=== PATIENT | female | born 1970 | race Caucasian/White ===

== ENCOUNTER 2023-11-06 20:02 | Emergency (ER) | payer MEDICAID, SELFPAY ==
--- NOTE | ~2023-11-06 | XR_ITS ---
EXAMINATION: XR HAND/WRIST, RIGHT CLINICAL INFORMATION: Injury COMPARISON: None TECHNIQUE: PA, lateral, scaphoid, and oblique views of the right hand and wrist. FINDINGS: Minimal osteoarthritis is noted at the index finger DIP joint with a small subchondral cyst in the and medial aspect of the distal phalangeal base. No acute osseous findings. No fracture. Alignment is anatomic. Joint spaces are otherwise maintained. No erosions or soft tissue calcifications. XR/XR hand wrist RT IMPRESSION: No acute fracture or malalignment. 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
[2023-11-06 20:43] VITALS: BP 144/79; PULSE 106; RESP 16; TEMP 36.6; O2SAT 97; BMI 26.2
--- NOTE | 2023-11-06 22:03 | ED_ITS ---
HPI - Extremity Problem General Chief complaint: Extremity Injury, Upper Stated complaint: fell 11/04 right wrist inj Time Seen by Provider: 11/06/23 21:54 Source: patient Mode of arrival: ambulatory Limitations: no limitations History of Present Illness HPI Narrative: 53 yo female with PMH of HTN, seizures here after fall outside injuring R wrist - she is R hand dominant at this time worsenend pain since fall on Tuesday when she developed a bruise. She notes she always bruises not on thinners. No other injuries has not really been resting it. MD Complaint: joint swelling and joint pain Onset (ago): day(s) (Tuesday ) Pain Consistency: intermittent Location: right and upper extremity Quality: aching Radiation: none Relieving factors: rest Exacerbating factors: range of motion and palpation Associated symptoms: denies other symptoms Context: other (fall ) Related Data Allergies Allergy/AdvReac Type Severity Reaction Status Date / Time No Known Allergies Allergy Verified 11/06/23 20:46 Review of Systems Review of Systems: Constitutional : No Fever, No Chills Cardiovascular : No Chest Pain, No SOB Respiratory : No Cough, No Dyspnea Gastrointestinal : No Nausea, No Vomiting, No Diarrhea, No abdominal Pain Genitourinary : No Dysuria, No Hematuria Musculoskeletal : positive joint pain, No Myalgias, pos Joint Swelling Skin : No Skin lacerations, No rash Neuro : No Weakness, No Numbness, No Loss of Consciousness, No Dizziness, No Headache Psych : No Anxiety/Panic, No Depression All other systems reviewed and are negative [facility] Past Medical History Source: old records reviewed Medical History HTN (hypertension) Seizures Social History Social History (Updated 11/06/23 @ 22:08 by Shlioh Akbar DO) Patient Tobacco Use Status: Tobacco use Unknown Physical Exam Vital Signs: Vital Signs: Last Vital Signs Temp 97.8 F 11/06/23 20:43 Pulse 106 H 11/06/23 20:43 Resp 16 11/06/23 20:43 BP 144/79 H 11/06/23 20:43 Pulse Ox 97 11/06/23 20:43 O2 Del Method Room Air 11/06/23 20:43 BMI result Body Mass Index 26.2 Appearance: Alert. Oriented X3. No acute distress. Eyes: Pupils equal, round and reactive to light. ENT: Pharynx normal. Neck: Normal inspection. Neck supple. CVS: Pulses normal. Respiratory: No respiratory distress. Abdomen: Soft and nontender. Skin: Skin warm and dry. Normal skin color. Normal skin turgor. Extremities: R wrist contusion on volar surface - from anterior surface to R thumb - distal NV intact no snuffbox ttp - BCR in all digits. no sig swelling very mild Neuro: Oriented X 3. No motor deficit. No sensory deficit. Medical Decision Making Medical Decision Making MDM Narrative: 53 yo female with PMH of HTN, seizures - here with c/o R hand injury s/p fall now with pain to wrist - she is NV intact does have bruising will obtain xray to rule out fracture to hand and wrist. if negative place in splint. Differential Diagnosis Differential Diagnoses: The differential diagnosis associated with the presentation includes sprain strain fracture Independent Interpretation I performed an independent interpretation of an: Plain X-Ray (no fracture) Radiology Impression Discussion of test interpretation with radiology: I have reviewed the radiologist's reading. Procedures Orthopedic Splinting/Casting Injury #1: Side: right Upper Extremity Injury Location: wrist Upper Extremity Immobilizer: wrist splint Discharge Plan Discharge Clinical Impression: Sprain and strain of wrist Finger sprain Qualifiers: Encounter type: initial encounter Finger: thumb Sprain of finger site: unspecified site Laterality: right Qualified Code(s): S63.601A - Unspecified sprain of right thumb, initial encounter Patient Disposition: Home, Self-Care Instructions: Finger Sprain (ED), Wrist Sprain (ED), Hematoma (ED) Additional Instructions: no fracture seen on hand or wrist xray. likely pain from swelling and brusing. return for worsening pain, swelling, numbness, tingling. keep elevated - wear splint and wrap for 1 week please follow up with our orthopedic team if not improved in 1 week - call to make appointment Referrals: Yaya Lomeli PA-C [[facility]] - 1 week (call to schedule appointment)
== END 2023-11-06 22:22 | disposition home or self-care (01) ==
PROVIDERS: Emergency Provider Emergency Medicine; PCP Internal Medicine
DX: S63.501A Unspecified sprain of right wrist, initial encounter (principal); S66.911A Strain of unspecified muscle, fascia and tendon at wrist and hand level, right hand, initial encounter; S63.601A Unspecified sprain of right thumb, initial encounter; W22.8XXA Striking against or struck by other objects, initial encounter; Y93.9 Activity, unspecified; Y92.017 Garden or yard in single-family (private) house as the place of occurrence of the external cause; Y99.9 Unspecified external cause status
CPT/HCPCS: 73110; 73130; 99283

== ENCOUNTER 2023-11-25 07:49 | Outpatient (AMB) | payer MEDICAID, SELFPAY ==
--- NOTE | 2023-11-25 08:06 | A.OFFVIS_ITS ---
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 Patient reports that she slipped on rake, hitting the ground landing on her whole weight on her right arm. She presented to [facility] ED 2 days later due to her pain and bruising. Current pain level is 8 out 10. Finds relief with ibuprofen, Tylenol and icing. 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 She was seen at ED 2 days later due to her pain and bruising in her hand where she was advised taking ibuprofen, Tylenol and icing which provided her relief. She currently states she has pain in her right hand and rates the pain as 8 on the scale of 0-10. PFSH Medical History (Updated 11/25/23 @ 08:21 by Yaya Lomeli PA-C) HTN (hypertension) Seizures Surgical History (Updated 11/25/23 @ 08:11 by JASS Shah) Hx of brain surgery Social History (Updated 11/25/23 @ 08:11 by JASS Shah) Patient Tobacco Use Status: Former Tobacco user Current occupational status: unemployed Current occupation: right hand dominant Review of Systems Const All systems reviewed & are unremarkable except as noted in HPI and below Physical Exam Const General: cooperative, healthy appearing, comfortable, no acute distress, well developed and alert Orientation/consciousness: patient oriented x3 HEENT Head: Yes normal to inspection, Yes normocephalic and Yes atraumatic Eyes General: appearance normal, both eyes and all related structures Resp Effort & Inspection: normal respiratory effort and able to speak in complete sentences Cardio Rate: regular rate Peripheral pulses: Peripheral pulses 2+ throughout GI Palpation (GI): Soft to palpation Skin Lesions: no lesions Rashes: no rashes Neuro General: patient oriented x3 Extrem Other: Right wrist: Normal to inspection. She has mild tenderness along the basal joint of the thumb. No swelling or bruising. No pain with CMC grind. Mild tenderness with stress testing of IP joint of the thumb. She has no significant laxity when compared to the contralateral side. She can make a full fist and extend all the digits. NVI. Results Reviewed Results Reviewed: xrays of the right wrist obtained in the ED on 11/06 are negative for fracture dislocations Assessment & Plan Assessment & Plan (1) Sprain of right thumb: Code(s): S63.601A - Unspecified sprain of right thumb, initial encounter Qualifiers: Encounter type: initial encounter Sprain of finger site: interphalangeal joint Qualified Code(s): S63.621A - Sprain of interphalangeal joint of right thumb, initial encounter (2) Right wrist sprain: Code(s): S63.501A - Unspecified sprain of right wrist, initial encounter Qualifiers: Encounter type: initial encounter Qualified Code(s): S63.501A - Unspecified sprain of right wrist, initial encounter Plan She was transitioned to a thumb spica Velcro wrist splint which she will wear for the next 2 weeks for resting and then begin a course of occupational therapy to work on gentle ROM and organic preparation analyst strength. She will continue taking anti- inflammatories as needed and follow-up if symptoms persist or worsen, otherwise as needed. Orders: Orders OT Evaluation and Treatment Today S63.501A - Unspecified sprain of right wrist, initial encounter, S63.601A - Unspecified sprain of right thumb, initial encounter Patient Instructions: Scribed for Yaya Lomeli PA-C, by Germain Restrepo medical physics teacher, on 11/25/2023 at 8:00 AM EST. I, Yaya Lomeli PA-C, have personally reviewed and agree with the information entered by the scribe. Coding Level of Care Code New Pt Level 3 (51813) Diagnoses Sprain of interphalangeal joint of right thumb, initial encounter S63.621A Encounter type: initial encounter Sprain of finger site: interphalangeal joint Sprain of right wrist, initial encounter S63.501A Encounter type: initial encounter
== END 2023-11-25 08:33 | disposition home or self-care (01) ==
PROVIDERS: PCP Internal Medicine; Visit Provider Physician Assistant
DX: S63.621A Sprain of interphalangeal joint of right thumb, initial encounter (principal); S63.501A Unspecified sprain of right wrist, initial encounter
CPT/HCPCS: 99203

== ENCOUNTER → 2023-11-25 07:49 | Outpatient (BNVA) | payer MEDICAID, SELFPAY | PROVIDERS: PCP Internal Medicine; Visit Provider Physician Assistant | DX: S63.621A Sprain of interphalangeal joint of right thumb, initial encounter (principal); S63.501A Unspecified sprain of right wrist, initial encounter | CPT/HCPCS: 99212 ==

== ENCOUNTER 2023-12-21 09:30 | Outpatient (RCR) | payer MEDICAID, SELFPAY ==
--- NOTE | 2023-12-02 09:32 | MHC.OT.EP ---
[address] [phone] Occupational Therapy Plan of Care Patient Name: Olga Weaver Date of Evaluation: 12/02/23 Diagnosis: Right wrist/thumb sprain Pain Location: Pain free at rest, up top 8/10 w/ use or palpation Right wrist, base of thumb, tender to palpate Tender OA nodule on lateral distal phalanx right thumb Pain Score: 8 Pain Scale Used: Numeric (0 - 10) Aggravating Factors: Palpation of thumb IP and base on thumb, volar wrist Increased pain w/ general use Alleviating Factors: Taking Tylenol and Ibuprophen, ice pack daily, wearing thumb spica orthosis Assessment: 53 yo female presents s/p fall in her yard about one month ago. She was seen in ED and then [facility] for right thumb and wrist pain, x-ray (-) for acute fractiure but does show OA in right thumb distal phalanx. She has been wearing thumb spica and using ice and Tylenol/Ibuprophen alternating for comfort. On assessment, she has tenderness to palpate nodule on distal thumb and pain at base of right thumb. Her range if slightly decreased from baseline, but overall functional. 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 She will benefit from cont'd OT services for progression of range, strength and functional use w/ mindfulness of joint protection and pain mangement. Frequency and Duration: The patient will be seen 2x/wk for 3 weeks Short Term Goals: Ind w/ HEP Good follow through w/ thumb joint protection techniques Good follow through w/ use of heat and ice appropriately Pressure Controller Goals: Wean from thumb spica orthosis QuickDASH <45 pts Gross grasp >30lb Pt to report pain <2/10 w/ daily activities (laundry, sweeping) Full thumb opp to base of small finger Treatment Plan: Therapeutic Exercise Therapeutic Activity Home Exercise Program Splinting Patient Education Edema Control ADL Training Paraffin Fluidotherapy MHP Cold Packs Joint Mobilization Soft Tissue Mobilization Kinesiotaping Electronically Signed By: Kirstie Bowers OTR/L CHT Please Sign and return to therapist. Thank you once again for your referral.
--- NOTE | 2023-12-21 14:16 | MHC.OT.DC ---
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 Pt reports she is confident with her HEP with thumb stablization exercises and with continuing joint protection techniques. 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
== END 2023-12-21 14:17 | disposition home or self-care (01) ==
LOC: HO.OT 09:30
PROVIDERS: PCP Internal Medicine; Visit Provider Physician Assistant
DX: S63.601A Unspecified sprain of right thumb, initial encounter (principal); S63.501A Unspecified sprain of right wrist, initial encounter
CPT/HCPCS: 29130; 97033; 97110; 97140; 97165; 97760

== ENCOUNTER 2024-01-11 10:56 | Outpatient (AMB) | payer MEDICAID, SELFPAY ==
--- NOTE | 2024-01-11 11:03 | A.OFFVIS_ITS ---
Intake Vital Signs 01/11/24 11:08 Height 5 ft Weight 134 lb BMI 26.2 Intake Visit Reasons: ov- Right wrist sprain and thumb pain Intake Note: Olga a 53 year old right hand dominant female presents today for a follow up of right wrist sprain and thumb pain. Patient reports continues to have pain and swelling however she has had improvement in swelling. She continues to do at home exercises. Allergies No Known Allergies Allergy (Verified 01/11/24 11:07) Medication List - Last Reconciled 01/11/24 by Yaya Lomeli PA-C azelastine 2 sprays intranasal BID PRN budesonide-formoterol 160-4.5 mcg/actuation (Symbicort) inhalation fluoxetine 40 mg PO DAILY gabapentin 100 mg PO BEDTIME hydrochlorothiazide 25 mg PO DAILY hydroxyzine pamoate 25 mg PO DAILY levetiracetam mg PO lisinopril 5 mg PO DAILY montelukast 10 mg PO DAILY omeprazole 40 mg PO QAM HPI ov- Right wrist sprain and thumb pain HPI Details 53-year-old right hand dominant female faustino galvez returns to the office today for a follow-up of right wrist and thumb pain. She reports she has improvement however she continues to have pain and swelling in her hand. She also c/o weakness in her hand with gripping objects. She has been working with occupational therapy and wearing her brace at night with mild relief. She finds relief with ibuprofen and Tylenol. [facility] Medical History (Updated 11/25/23 @ 08:21 by Yaya Lomeli PA-C) HTN (hypertension) Seizures Surgical History Hx of brain surgery Social History Patient Tobacco Use Status: Former Tobacco user Current occupational status: unemployed Current occupation: right hand dominant Review of Systems Const All systems reviewed & are unremarkable except as noted in HPI and below Physical Exam Vital Signs: BMI result Body Mass Index 26.2 Const General: cooperative, healthy appearing, comfortable, no acute distress, well developed and alert Orientation/consciousness: patient oriented x3 HEENT Head: Yes normal to inspection, Yes normocephalic and Yes atraumatic Eyes General: appearance normal, both eyes and all related structures Resp Effort & Inspection: normal respiratory effort and able to speak in complete sentences Cardio Rate: regular rate Peripheral pulses: Peripheral pulses 2+ throughout GI Palpation (GI): Soft to palpation Skin Lesions: no lesions Rashes: no rashes Neuro General: patient oriented x3 Extrem Other: Right wrist: Normal to inspection. She has mild tenderness along the basal joint of the thumb. No swelling or bruising. No pain with CMC grind. Mild tenderness with stress testing of IP joint of the thumb. She has no significant laxity when compared to the contralateral side. She can make a full fist and extend all the digits. Positive Rudolph's. NVI. Assessment & Plan Assessment & Plan (1) Sprain of right thumb: Code(s): S63.601A - Unspecified sprain of right thumb, initial encounter Qualifiers: Encounter type: initial encounter Sprain of finger site: interphalangeal joint Qualified Code(s): S63.621A - Sprain of interphalangeal joint of right thumb, initial encounter (2) Right wrist sprain: Code(s): S63.501A - Unspecified sprain of right wrist, initial encounter Qualifiers: Encounter type: initial encounter Qualified Code(s): S63.501A - Unspecified sprain of right wrist, initial encounter Plan We discussed options today which include steroid injection. They did consent to move forward with the right wrist injection, which was tolerated well. I recommended rest, ice and elevation and OTC anti-inflammatories PRN for discomfort. If symptoms persist or worsens over the next 6-8 weeks, patient will contact the office, otherwise follow-up as needed. She was also fit for a new Velcro thumb spica wrist splint which she will wear at night. I encouraged no heavy lifting or strenuous activities for the next 6 weeks. An EMG/nerve conduction study has been ordered to further evaluate the etiology of her numbness on the right hand. Orders: Orders NE electromyogram (EMG) Today R20.0 - Anesthesia of skin, R20.2 - Paresthesia of skin NE nerve conduction velocity Today R20.0 - Anesthesia of skin, R20.2 - Paresthesia of skin Patient Instructions: Scribed for Yaya Lomeli PA-C, by Germain Restrepo neuropsychology medical consultant, on 01/11/2024 at 11:00 AM Yaya DAVILA PA-C, have personally reviewed and agree with the information entered by the scribe. Coding Level of Care Code Est Pt Level 3 (23005) Diagnoses Sprain of interphalangeal joint of right thumb, initial encounter S63.621A Encounter type: initial encounter Sprain of finger site: interphalangeal joint Sprain of right wrist, initial encounter S63.501A Encounter type: initial encounter
[2024-01-11 11:08] VITALS: BMI 26.2
== END 2024-01-11 11:49 | disposition home or self-care (01) ==
PROVIDERS: PCP Internal Medicine; Visit Provider Physician Assistant
DX: S63.621A Sprain of interphalangeal joint of right thumb, initial encounter (principal); S63.501A Unspecified sprain of right wrist, initial encounter
CPT/HCPCS: 99213

== ENCOUNTER → 2024-01-11 10:56 | Outpatient (BNVA) | payer MEDICAID, SELFPAY | PROVIDERS: PCP Internal Medicine; Visit Provider Physician Assistant | DX: S63.621A Sprain of interphalangeal joint of right thumb, initial encounter (principal); S63.501A Unspecified sprain of right wrist, initial encounter | CPT/HCPCS: 20605; 99212; J1100 ==

== ENCOUNTER 2024-02-24 08:15 | Outpatient (REF) | payer MEDICAID, SELFPAY ==
--- NOTE | 2024-02-24 08:18 | EMG_ITS ---
Chief complaint: Right wrist pain after a fall October 2023, finger numbness Reason for referral: Evaluate for Carpal Tunnel Syndrome Referred by: Yaya ECHEVERRIA Procedure done: Right upper extremity NCS/EMG Precautions and/or limitations: None The limb temperature was monitored continuously and remained between 32-36 degrees C during the performance of the NCS. Nerve Conduction Studies Anti Sensory Summary Table ?Stim Site NR Onset (ms) Norm Onset (ms) Peak (ms) Norm Peak (ms) O-P Amp (?V) Norm O-P Amp Site1 Site2 Delta-0 (ms) Dist (cm) Joe (m/s) Norm Joe (m/s) Right Median Anti Sensory (2nd Digit) Wrist ? 2.3 3.1 <3.6 45.3 >10 Wrist 2nd Digit 2.3 14.0 61 Right Ulnar Anti Sensory (5th Digit) Wrist ? 2.0 2.8 <3.7 25.6 >15.0 Wrist 5th Digit 2.0 14.0 70 Motor Summary Table ?Stim Site NR Onset (ms) Norm Onset (ms) O-P Amp (mV) Norm O-P Amp iAmp (mV) Amp (1st) (%) Site1 Site2 Delta-0 (ms) Dist (cm) Joe (m/s) Norm Joe (m/s) Right Median Motor (Abd Poll Brev) Wrist ? 3.0 <3.9 11.7 >4.5 13.6 100.0 Elbow Wrist 3.3 17.0 52 >45 Elbow ? 6.3 10.9 12.6 93.2 Right Ulnar Motor (Abd Dig Minimi) Wrist ? 2.2 <3.0 9.0 >5 11.3 100.0 B Elbow Wrist 2.7 15.0 56 >45 B Elbow ? 4.9 9.0 11.5 100.0 A Elbow B Elbow 1.0 10.0 100 >45 A Elbow ? 5.9 8.8 11.3 97.8 Comparison Summary Table ?Stim Site NR Peak (ms) Norm Peak (ms) P-T Amp (?V) Site1 Site2 Delta-P (ms) Norm Delta (ms) Right Median/Radial Dig I Comparison (Digit 1 - 10cm) Median ? 2.6 <2.9 97.2 Median Radial 0.5 Radial ? 2.1 <2.8 23.9 EMG ?Side Muscle Nerve Root Ins Act Fibs Psw Amp Dur Poly Recrt Int Pat Comment Right 1stDorInt Ulnar C8-T1 Nml Nml Nml Nml Nml 0 Nml Complete Right FlexCarRad Median C6-7 Nml Nml Nml Nml Nml 0 Nml Complete Right Biceps Musculocut C5-6 Nml Nml Nml Nml Nml 0 Nml Complete Right Triceps Radial C6-7-8 Nml Nml Nml Nml Nml 0 Nml Complete Right Deltoid Axillary C5-6 Nml Nml Nml Nml Nml 0 Nml Complete FINDINGS: 0.5 interlatency difference between right median and radial sensory nerves. Otherwise, all other motor and sensory nerves tested showed normal latencies, amplitudes and conduction velocities. Concentric needle EMG was performed in selected muscles of the right upper extremity. Study did not reveal signs of electric abnormalities as shown in the table below. IMPRESSION: 1. This is a minimally abnormal study. 2. There is electrodiagnostic evidence for right mild/borderline median neuropathy at the wrist. 3. There is no electrodiagnostic evidence for ulnar neuropathy, brachial plexopathy, or cervical radiculopathy. Thank you for your kind referral. Antoinette Riddle MD, DOTTIE Board Certified, [place] [employer] and [employer] (ABPMR) Board Certified, [place] Board of Electrodiagnostic [employer] (ABEM) [place] [id number] [facility]
== END 2024-02-24 08:16 | disposition home or self-care (01) ==
LOC: HO.NEURO 08:15
PROVIDERS: Visit Provider Physician Assistant
DX: R20.0 Anesthesia of skin (principal); R20.2 Paresthesia of skin
CPT/HCPCS: 95886; 95909

== ENCOUNTER → 2024-02-24 08:18 | Outpatient (BNV) | payer MEDICAID, SELFPAY | PROVIDERS: Visit Provider Physical Medicine & Rehabilitation | DX: G56.11 Other lesions of median nerve, right upper limb (principal); M25.531 Pain in right wrist | CPT/HCPCS: 95886; 95909 ==

== ENCOUNTER 2024-03-14 09:14 | Outpatient (AMB) | payer MEDICAID, SELFPAY ==
--- NOTE | 2024-03-14 09:28 | MHC.OFFVIS ---
Intake Vital Signs 03/14/24 09:29 Height 5 ft Weight 135 lb BMI 26.4 Intake Visit Reasons: ov- emg results review Intake Note: Olga 54 yr old right hand dominant female presents today for his EMG review. States she is ready to have surgery. Booking sheet has been filled out and all question have been answered. Allergies No Known Allergies Allergy (Verified 03/14/24 09:41) HPI ov- emg results review HPI Details Olga is a 54 year old right hand dominant woman who presents for a NCS review of her right hand numbness. She complains of numbness primarily in the thumb, index, and middle fingers of her right hand. Symptoms intermittent, but daily, worse at night. She wears a wrist brace at night. She also has right basal joint arthritis, and has been seen by OT for a right thumb & wrist sprain after a fall in 10/2023. She says she is unemployed. She walks using a cane. [facility] Medical History (Updated 03/14/24 @ 09:58 by Toribio Gage) HTN (hypertension) Seizures Surgical History Hx of brain surgery Social History Patient Tobacco Use Status: Former Tobacco user Current occupational status: unemployed Current occupation: right hand dominant Review of Systems Const All systems reviewed & are unremarkable except as noted in HPI and below Physical Exam Vital Signs: BMI result Body Mass Index 26.4 Const General: cooperative, healthy appearing and no acute distress Orientation/consciousness: patient oriented x3 HEENT Head: Yes normocephalic and Yes atraumatic Eyes EOM: EOMs intact bilaterally Resp Effort & Inspection: normal respiratory effort and able to speak in complete sentences Cardio Jugular venous distension: no JVD Skin General skin exam: turgor normal Rashes: no rashes Neuro General: patient oriented x3 Extrem Other: Evaluation of Right Upper Extremity: The patient is alert, oriented, and in no acute distress Neuro: Median, Ulnar, Radial nerves motor and sensory intact and sensation is normal to the tips of all digits No thenar or intrinsic wasting Good APB muscle belly firing and good finger cross Vascular: Cap refill brisk ROM: With encouragement, she can make a fist and extend all her digits She can oppose her thumb to all digits No locking or catching Full wrist ROM Skin: No lacerations or abrasions. General: No Ecchymosis. No Erythema or evidence of infection. Radiographs: IMPRESSION: 1. This is a minimally abnormal study. 2. There is electrodiagnostic evidence for right mild/borderline median neuropathy at the wrist. 3. There is no electrodiagnostic evidence for ulnar neuropathy, brachial plexopathy, or cervical radiculopathy. Antoinette Riddle MD, DOTTIE 02/24/24 Psych Appearance: grossly normal Affect: normal affect Attitude: cooperative Assessment & Plan Assessment & Plan (1) Carpal tunnel syndrome of right wrist: Code(s): G56.01 - Carpal tunnel syndrome, right upper limb Plan Assessment & Plan: 1. Right carpal tunnel syndrome, borderline/mild Symptoms intermittent, but daily, worse at night I educated her about this condition I discussed operative and non-operative treatment options The patient would like to proceed with surgery She will continue to wear her wrist brace at night The risks and benefits of operative treatment were discussed with the patient and the patient wishes to proceed with surgery. These risks include, but are not limited to risk of damage to blood vessels, nerves, tendons, infection, recurrence, incomplete relief of preoperative symptoms, persistent pain, possible need for further surgery and the risks associated with regional blocks and anesthesia. The plan is to take the patient to the operating room sometime in the next few weeks for the following procedures: 1. Right carpal tunnel release, under local All of the preoperative paperwork including the consent was reviewed today. All the patient's questions were answered. The patient understands that they will be contacted by our dental scheduler soon to schedule this procedure She denies Diabetes, blood thinners, asthma, heart, lung, kidney issues Scribed for Bernadine Gaona MD by Toribio Gage, medical operations supervisor, on 03/14/24 at 10:00 AM, EST. Coding Level of Care Code New Pt Level 4 (68226) Diagnoses Carpal tunnel syndrome of right wrist G56.01
[2024-03-14 09:29] VITALS: BMI 26.4
== END 2024-03-14 10:08 | disposition home or self-care (01) ==
PROVIDERS: PCP Internal Medicine; Visit Provider Orthopaedic Surgery
DX: G56.01 Carpal tunnel syndrome, right upper limb (principal)
CPT/HCPCS: 99204

== ENCOUNTER → 2024-03-14 09:14 | Outpatient (BNVA) | payer MEDICAID, SELFPAY | PROVIDERS: Visit Provider Orthopaedic Surgery | DX: G56.01 Carpal tunnel syndrome, right upper limb (principal) | CPT/HCPCS: 99202 ==

== ENCOUNTER 2024-05-14 10:30 | Day surgery (SDC) | payer MEDICAID, SELFPAY ==
[2024-05-14 12:41] VITALS: BMI 26.4
[2024-05-14 12:42] VITALS: BP 174/91; PULSE 74; RESP 16; TEMP 37.1; O2SAT 97
--- NOTE | 2024-05-14 13:17 | MHC.SHP ---
Pre-Procedural Eval Section A - 24 Hr Update-Section A only Date of Service: 05/14/24 The patient is an INPATIENT: No Changes since office visit: No Cold of Flu in the past 2 weeks, No New Medical Problems, No Changes in Medication and No Patient answered all questions The patient has been examined within 24 hours of the surgical procedure. The History & Physical has been completed within 30 days and I have reviewed it.: Yes Section B - Complete if H&P > 30 days Chief Complaint: Carpal tunnel syndrome, right upper limb Allergies: Allergies Allergy/AdvReac Type Severity Reaction Status Date / Time No Known Allergies Allergy Verified 03/14/24 09:41 Plan I have reviewed the history and physical and performed a pertinent physical examination on my patient. No changes have occurred unless specified. Time Spent With Patient Time: Total time managing care of this patient today ____ minutes.
--- NOTE | 2024-05-14 13:17 | W.PM.OPN ---
Operative Note Operative Note Date of Service: 05/14/24 Narrative: Preop diagnosis: 1. Right Carpal tunnel syndrome Postop diagnosis: same Procedure: 1. Right Carpal tunnel release Surgeon: Bernadine Gaona MD Anesthesia: local block using 1% lidocaine with epinephrine Findings: Thickened transverse carpal ligament. EBL: Less than 5 mL Specimens: None Complications: None Disposition: Brought to recovery room in stable condition Plan: Follow-up for 10-14 days for wound check and suture removal Indications: The patient is 54 years old, with right carpal tunnel syndrome that has been unresponsive to nonoperative management. The risks and benefits of operative treatment including but not limited to risk of damage to blood vessels, nerves, tendons, infection, persistent pain, persistent symptoms, or possible need for additional surgery were discussed with the patient and the patient wishes to proceed with surgery. Procedure: Once consent was obtained a local block was performed using a combination of 1% lidocaine with epinephrine. The patient was then brought back to the operating suite and placed on the operative table in supine position. The right upper extremity was prepped and draped in a standard surgical fashion. Once assured that we had a good block, a 2.0 cm longitudinal incision was made centered over the carpal tunnel. The incision was made through the skin to the subcutaneous tissues using a #15 blade. Dissection was made down to the level of the transverse carpal ligament with care being taken to protect the palmar cutaneous nerve. Once the transverse carpal ligament was clearly visualized, a longitudinal incision was made in the transverse carpal ligament 1st using a #15 blade, then using tenotomy scissors under direct visualization. Care was taken to look for and protect the motor branch of the median nerve when seen in this area. Once satisfied with our carpal tunnel release the wound was copiously irrigated with normal saline and hemostasis was obtained with a brief period of local pressure. The skin edges were reapproximated with some 5.0 nylon suture material and a sterile dressing was applied. The patient appears to have tolerated the procedure well and with no complications. All digits were well vascularized at the conclusion of the case.
[2024-05-14 14:22] VITALS: BP 162/75; PULSE 82; RESP 16; TEMP 36.1; O2SAT 97
== END 2024-05-14 14:25 | disposition home or self-care (01) ==
PROVIDERS: PCP Internal Medicine; Visit Provider Orthopaedic Surgery
PROC: (CPT 64721; principal; 2024-05-14 12:50)
DX: G56.01 Carpal tunnel syndrome, right upper limb (principal); M19.031 Primary osteoarthritis, right wrist; R20.0 Anesthesia of skin; Z91.81 History of falling; I10 Essential (primary) hypertension; R56.9 Unspecified convulsions; Z99.89 Dependence on other enabling machines and devices; Z79.899 Other long term (current) drug therapy; Z98.890 Other specified postprocedural states; Z87.891 Personal history of nicotine dependence; Z56.0 Unemployment, unspecified
CPT/HCPCS: 64721; J0171

== ENCOUNTER → 2024-05-14 10:30 | Outpatient (BNV) | payer MEDICAID, SELFPAY | PROVIDERS: PCP Internal Medicine; Visit Provider Orthopaedic Surgery | DX: G56.01 Carpal tunnel syndrome, right upper limb (principal) | CPT/HCPCS: 64721 ==

== ENCOUNTER 2024-05-29 11:22 | Outpatient (AMB) | payer MEDICAID, SELFPAY ==
--- NOTE | 2024-05-29 11:32 | MHC.OFFVIS ---
Vital Signs 05/29/24 11:39 Handedness Right Intake Visit Reasons: PO-Rt CTR 05/14/24 Intake Note: Olga is a 54 year old right hand dominant female who presents today post operatively s/p right CTR 05/14/24. Patient reports on 05/26/24 she was in [place] and there was a strong burst of wind which caused her to fall and land on he right hand. She states her hand was in pain after the fall but today has no complaints of pain. She expresses mild tingling and numbness on and off that is still in her index finger. The incision site looks red with some whiteness around the sutures. This morning she states she noticed a small amount of white pus that came out of her site. She currently had more white pus leaking from her incision. Sutures removed and steri strips applied. Allergies No Known Allergies Allergy (Verified 05/29/24 11:38) HPI HPI PO-Rt CTR 05/14/24: Details: Olga is a 54 year old right hand dominant woman who returns S/p right carpal tunnel release, DOS: 05/14/24 She reports falling onto her right hand on 05/26/24, after which time she developed some increasing pain and redness about the incision. She reports that she still has some mild intermittent numbness in her index finger but now has normal sensation to her thumb & middle finger. She reports good resolution of her nighttime symptoms. She says she has someone helping her care for her pets at home. 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 She says she is unemployed. She walks using a cane. [facility] Medical History (Updated 05/29/24 @ 12:06 by Toribio Gage) Carpal tunnel syndrome of right wrist HTN (hypertension) Seizures Surgical History Hx of brain surgery Social History Patient Tobacco Use Status: Former Tobacco user Current occupational status: unemployed Current occupation: right hand dominant Review of Systems Const All systems reviewed & are unremarkable except as noted in HPI and below Physical Exam Const General: no acute distress and alert Orientation/consciousness: patient oriented x3 Neuro General: patient oriented x3 Extrem Other: The patient was alert oriented and in no acute distress Sutures removed and Steri-Strips applied She has some mild cellulitis aboout her incision site She can make a fist and extend all her digits Intermittent numbness in the index finger, normal sensation to the thumb & middle fingers. Cap refill is brisk Nerve conduction study: IMPRESSION: 1. This is a minimally abnormal study. 2. There is electrodiagnostic evidence for right mild/borderline median neuropathy at the wrist. 3. There is no electrodiagnostic evidence for ulnar neuropathy, brachial plexopathy, or cervical radiculopathy. Antoinette Riddle MD, DOTTIE 02/24/24 Psych Appearance: grossly normal Affect: normal affect Attitude: cooperative Assessment & Plan Assessment & Plan (1) Carpal tunnel syndrome of right wrist: Code(s): G56.01 - Carpal tunnel syndrome, right upper limb Category: Medical (2) Cellulitis of right wrist: Code(s): L03.113 - Cellulitis of right upper limb Category: Medical Plan Assessment & Plan: 1. Right carpal tunnel syndrome, S/P release Pre-operative symptoms intermittent, but daily, worse at night Now with normal sensation to the thumb & middle finger, and improved but not yet normal sensation to the index finger 2. Mild cellulitis at the incision site, possibly related to a recent fall onto her outstretched hand About her carpal tunnel incision, S/P fall DOI: 05/26/24 The patient appears to be doing well post-operatively I educated her about the post-operative course I explained the signs and symptoms of infection, if the patient develops any new or worsening erythema, drainage, pain, or warmth they should contact the clinic or attend the ED. I ordered a 7-day course of Augmentin for her to take I discussed activity modifications, she is to lift nothing heavier than a cellphone for the next two weeks She will perform gentle ROM exercises at home She should avoid any underwater activities for the next 5 days She should gently massage about the incision site to reduce the risk of hypersensitivity She will follow up sometime next week for a wound check Scribed for Bernadine Gaona MD by Toribio Gage, medical or surgical instrument maker, on 05/29/24 at 12:00 PM, EST. Medications: New amoxicillin-pot clavulanate 875-125 mg 1 tab PO Q12H 10 tabs 0RF Scribe Plan - Not visible on output: Scribed for Bernadine Gaona MD by Toribio Gage, medical or surgical instrument maker, on [ ] at [ ], EST. Coding Level of Care Code Global (34154) Diagnoses Carpal tunnel syndrome of right wrist G56.01 Cellulitis of right wrist L03.113
== END 2024-05-29 12:06 | disposition home or self-care (01) ==
PROVIDERS: Visit Provider Orthopaedic Surgery
DX: G56.01 Carpal tunnel syndrome, right upper limb (principal); L03.113 Cellulitis of right upper limb
CPT/HCPCS: 99024

== ENCOUNTER → 2024-05-29 11:22 | Outpatient (BNVA) | payer MEDICAID, SELFPAY | PROVIDERS: Visit Provider Orthopaedic Surgery | DX: G56.01 Carpal tunnel syndrome, right upper limb (principal); L03.113 Cellulitis of right upper limb; Z48.02 Encounter for removal of sutures | CPT/HCPCS: 99212 ==

== ENCOUNTER 2024-06-05 10:19 | Outpatient (AMB) | payer MEDICAID, SELFPAY ==
[2024-06-05 10:24] VITALS: BMI 27.7
--- NOTE | 2024-06-05 10:24 | MHC.OFFVIS ---
Vital Signs 06/05/24 10:24 Height 5 ft Weight 142 lb BMI 27.7 Intake Visit Reasons: PO - Rt CTR 05/14/24 (wound check) Intake Note: Olga is a 54 yr old female who presents today for a wound check. Pt reports that it feels hard around the wound and she cannot close her index finger all the way. Allergies No Known Allergies Allergy (Verified 06/05/24 10:24) HPI HPI PO - Rt CTR 05/14/24 (wound check): Details: Patient is a 54-year-old right-hand dominant female who presents for follow-up status post carpal tunnel release, DOS 05/14/[address] Gaona. Postoperatively, patient was noted to be cellulitic about the surgery site, and was prescribed a course of antibiotics at last visit. Today, the patient reports she is feeling much better, however she is still experiencing some pain to palpation at the surgery site. She reports that she still has some degree of erythema and swelling around the surgery site, but this is greatly improved since last visit and completion of course of antibiotics. No active drainage. She reports some stiffness in her right index finger, and she states that she has not really been flexing and extending at any of the MCP joints on her right hand since after surgery. [facility] Medical History (Updated 05/29/24 @ 12:06 by Toribio Gage) Carpal tunnel syndrome of right wrist HTN (hypertension) Seizures Surgical History Hx of brain surgery Social History (Reviewed 05/29/24 @ 11:40 by Nayeli Castaneda [facility]) Patient Tobacco Use Status: Former Tobacco user Current occupational status: unemployed Current occupation: right hand dominant Physical Exam Vital Signs: BMI result Body Mass Index 27.7 Extrem Other: Patient is alert, oriented, and in no acute distress. Neuro: Median, ulnar, radial nerves motor and sensory intact and sensation is normal to the tips of all digits. Vascular: Cap refill brisk Pain: Patient reports tenderness to palpation about the surgery site that lessens with gentle massage about the incision area ROM: With encouragement, patient is able to make a closed fist Patient reports mild discomfort in the dorsal index finger and hand with full flexion of the finger. Skin: Well-healing incision site status post right carpal tunnel release Erythema surrounding surgery site has greatly improved since last visit General: No ecchymosis, drainage, or evidence of infection. Psych: Appears grossly normal Affect normal Attitude cooperative Assessment & Plan Assessment & Plan (1) Carpal tunnel syndrome of right wrist: Code(s): G56.01 - Carpal tunnel syndrome, right upper limb Category: Medical (2) Cellulitis of right wrist: Code(s): L03.113 - Cellulitis of right upper limb Category: Medical Plan 1. Carpal tunnel syndrome, right has post carpal tunnel release DOS 05/14/2024 Patient is recovering well postoperatively Patient is educated about the postoperative course Mild cellulitis about the incision site appears to have greatly improved after postoperative antibiotics, however there is still some redness present around the incision site No warmth or edema present at this time. Patient is educated to call us and schedule an appointment if she noticed the redness getting worse, or if she notices other signs of infection such as purulent discharge Patient appears to be demonstrating early hypersensitivity around the incision site, and is educated to continue massaging around and over the incision site to prevent this Patient educated to continue ring her entire right hand were closed fist and holding for 10 seconds multiple times per hour in order to prevent stiffness. No scheduled follow-up necessary, the patient to follow-up p.r.n. with any acute concerns Coding Level of Care Code Global (34666) Diagnoses Carpal tunnel syndrome of right wrist G56.01 Cellulitis of right wrist L03.113
== END 2024-06-05 10:58 | disposition home or self-care (01) ==
PROVIDERS: PCP Internal Medicine
DX: G56.01 Carpal tunnel syndrome, right upper limb (principal); L03.113 Cellulitis of right upper limb
CPT/HCPCS: 99024

== ENCOUNTER → 2024-06-05 10:19 | Outpatient (BNVA) | payer MEDICAID, SELFPAY | PROVIDERS: PCP Internal Medicine | DX: T81.49XA Infection following a procedure, other surgical site, initial encounter (principal); L03.113 Cellulitis of right upper limb | CPT/HCPCS: 99212 ==

== ENCOUNTER 2025-07-18 08:39 | Outpatient (AMB) | payer MEDICAID, SELFPAY ==
--- NOTE | 2025-07-18 08:43 | A.OFFVIS_ITS ---
Intake Visit Reasons: f/u appt Allergies No Known Allergies Allergy (Verified 07/18/25 08:50) Medication List - Last Reconciled 07/18/25 by Kera Khan CNP amoxicillin-pot clavulanate 875-125 mg 1 tab PO Q12H azelastine 2 sprays intranasal BID PRN budesonide-formoterol 160-4.5 mcg/actuation (Symbicort) inhalation fluoxetine 40 mg PO DAILY gabapentin 100 mg PO BEDTIME hydrochlorothiazide 25 mg PO DAILY hydroxyzine pamoate 25 mg PO DAILY levetiracetam 500 mg orally 1 tab in the morning and 2 tabs at bedtime; 90 days lisinopril 5 mg PO DAILY montelukast 10 mg PO DAILY omeprazole 40 mg PO QAM HPI Comments Details: She was doing okay. No seizures. Occasionally misses nighttime dose of levetiracetam. Infrequent headaches, using Ibuprofen as needed which helps. Memory has been stable. Stress was okay. Sleep was okay, wakes few times during night but able to fall back to sleep. No significant dizziness. No double vision. Working at [employer] in [employer] which she enjoys. Uses cane for longer distances and at work, no falls. Had R CTS release 04/2024. Gets yearly brain MRI s/p meningioma resection. Ongoing L knee arthritis pain, using ibuprofen as needed and occasionally will use brace. Some trouble with short-term memory. Her mother was diagnosed with dementia sometime in her 40s. Infrequent tension-type headaches, relieved by Tylenol. She is s/p resection of right meningioma 01/2016. Her diplopia has resolved. Rare dizziness characterized by lightheadedness and vertigo, occasional right occipital pain. She has history of seizure-like episodes where she appears blank and has no recall, and at least one episode in which her left hand shook uncontrollably for about 10 minutes which happened on 07/18/2016. History of weekly episodes where she stares and appears to be out of it and disoriented with no recall as to what happened. 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 [facility] Medical History (Updated 07/18/25 @ 08:48 by Kera Khan [employer]) Carpal tunnel syndrome of right wrist HTN (hypertension) Seizures Surgical History Hx of brain surgery Social History Patient Tobacco Use Status: Former Tobacco user Current occupational status: unemployed Current occupation: right hand dominant Review of Systems Const Denies chills, Denies daytime sleepiness, Reports difficulty sleeping, Denies f atigue, Denies fever(s), Denies frequent falls, Reports headache(s), Denies increased appetite, Denies poor appetite, Denies snoring, Denies weakness, Denies weight gain and Denies weight loss Eyes Denies loss of vision ENT Denies vertigo, Reports dizziness, Reports headache(s) and Denies neck pain Card Denies chest pain at rest, Denies chest pain with activity, Denies syncope, Denies leg edema, Denies palpitations, Denies dyspnea and Denies dyspnea on exertion Resp Denies cough, Denies dyspnea, Denies dyspnea on exertion and Denies snoring GI Denies abdominal pain, Denies constipation, Denies heartburn, Denies diarrhea and Denies nausea Denies urinary frequency, Denies urinary incontinence and Denies urinary urgency Musc Denies abnormal gait, Denies back pain, Denies myalgias, Denies arthralgias, Denies neck pain, Denies numbness and Denies tingling Neuro Denies abnormal gait, Denies vertigo, Reports dizziness, Denies syncope, Denies frequent falls, Reports headache(s), Denies lack of coordination, Denies loss of vision, Reports memory loss, Denies numbness, Denies Other visual disturbances, Denies restless legs, Denies seizure-like activity, Denies tingling, Denies paresthesias, Denies tremor(s) and Denies weakness Psych Denies anxiety, Denies depression, Denies auditory hallucinations, Reports memory loss and Denies visual hallucinations Endo Denies fatigue and Denies palpitations Physical Exam Const Other: General Appearance:? normal, in no acute distress. Heart:? S1, S2 normal, no murmurs. Lungs:? clear anteriorly and posteriorly. Musculoskeletal:? normal. Extremities:? no edema. Psych:? alert, oriented, cognitive function intact, cooperative with exam. Neuro Other: Abnormal Neurological Findings:?MMSE 29/30? Mental Status: alert and oriented X 3. Normal attention, orientation, memory, and affect. Cranial Nerves: Pupils are equal, round, and reactive to light. External ocular muscles are intact. Visual mathis are full, no ptosis. Face is symmetrical, no facial weakness or droop. Facial sensations are normal. Tongue protrudes in midline. Palate elevates symmetrically. Shoulder shrugging is normal Motor Examination: Normal muscle tone, bulk and strength. No atrophy or fasciculations. No drift of the extended upper extremities. DTR 2+. Plantars are flexor. Sensory Exam: Normal light touch, temperature, pinprick, vibration, and joint- position sensations. Rhomberg sign is absent. Coordination: No ataxia. No titubation. Gait Exam: Within normal limits. Cerebellar Signs: [id number] is okay. Extrapyramidal System: No tremor, rigidity with normal facial expressions. No bradykinesia. No bradyphrenia. Normal arm swing and posture. No propulsion or retropulsion. Speech: Normal. MMSE Level of Consciousness: Alert. Orientation: Knows correct year, month, date, day and season. Knows correct city, county and state. Knows correct location and floor. Registration: Able to register 3 objects. Attention: Serial 7's performed accurately. Recall: Able to recall 2 out of 3 objects. Language: Normal spontaneous speech, fluency, repetition, naming, comprehension, reading, and writing. Total Score: 29/30. Results Reviewed Results Reviewed: 04/20/23 EEG- WNL 03/10/2024 Brain MRI at [facility]: Stable postsurgical changes. Assessment & Plan Assessment & Plan (1) Seizures: Code(s): R56.9 - Unspecified convulsions Category: Medical Plan: Continue levetiracetam 500mg 1 tablet in the morning and 2 tablets at bedtime. She was educated on the importance of medication compliance and risk associated with missed doses, including seizures. (2) Meningioma: Code(s): D32.9 - Benign neoplasm of meninges, unspecified Category: Medical Plan: . (3) Tension headache: Code(s): G44.209 - Tension-type headache, unspecified, not intractable Category: Medical Plan: May continue ibuprofen as needed. Coding Level of Care Code Est Pt Level 4 (66161) Diagnoses Seizures R56.9 Meningioma D32.9 Tension headache G44.209
--- OUTSIDE RECORDS SUMMARY | 2025-07-18 09:39 | XMS_ITS | Clinical Summary ---
Author Organization [facility] Address [address] [place] [address] Phone Care Team Providers Care Recruiting Specialist Name Role Phone Yee Casey DO Primary Care Pro vider Allergies No known active allergies Medications albuterol sulfate (ProAir RespiClick) 90 mcg/actuation aerosol powdr breath activated Inhale by mouth. 7 Active azelastine-flut icasone 137-50 mcg/spray spray,non-aeros ol Administer into affected nostril(s). Active budesonide-form oteroL (SYMBICORT) 160-4.5 mcg/actuation inhaler Inhale by mouth. Active FLUoxetine (PROzac) 40 mg capsule Take 1 capsule (40 mg total) by mouth 1 (one) time each day. Active gabapentin (NEURONTIN) 100 mg capsule TAKE 1 CAPSULE BY MOUTH EVERY DAY AT BEDTIME FOR 90 DAYS 4 Active hydroCHLOROthia zide (HYDRODIURIL) 25 mg tablet Take 1 tablet (25 mg total) by mouth 1 (one) time each day. Active levETIRAcetam (KEPPRA) 500 mg tablet Take 1 tablet (500 mg total) by mouth 2 (two) times a day. Active lisinopriL (PRINIVIL,ZESTR IL) 5 mg tablet Take 1 tablet (5 mg total) by mouth daily. Active montelukast (SINGULAIR) 10 mg tablet Take 1 tablet (10 mg total) by mouth. Active omeprazole (PriLOSEC) [address] capsule Take 1 capsule (40 mg total) by mouth 1 (one) time each day. Active indomethacin (INDOCIN) 50 mg capsule Take 1 capsule (50 mg total) by mouth 2 (two) times a day with meals. Active Active Problems No known active problems Surgical History Surgery Date Site/Laterality Comments OTHER SURGICAL HISTORY 10/27/2016 PROCEDURE: UT CRNEC STEVEN INFRATTL/POSTFOSSA CRBLOPNT ANGLE STEVEN; COMMENT: crani for resection of tumor MULTIPLE TOOTH EXTRACTIONS Medical History Medical History Date Comments Essential hypertension DX:Essent ial hypertension Anxiety state DX:Anxiety state Depressive disorder DX:Depressiv e disorder Asthma DX:Asthma Brain tumor (CMS/HCC V24, CMS/HCC V28) DX:Brain tumor (HCC) Seizures (CMS/HCC V24, CMS/HCC V28) Family History Medical History Relation Name Comments Colon cancer Father Prostate cancer Father Relation Name Status Comments Father Social History Tobacco Use Types Packs/Day Years Used Date Smoking Tobacco: Former Cigarettes Smokeless Tobacco: Never Alcohol Use Standard Drinks/Week Comments Yes 0 (1 standard drink = 0.6 oz pur e alcohol) Interpersonal Safety Answer Date Record ed Physical Abuse 10/29/2024 Verbal Abuse 10/29/2024 Comments No Sex and Gender Information Value Date Recorded Sex Assigned at Female 10/29/2024 7:31 AM EST Legal Sex Female 8:48 PM EST Gender Identity Female 10/29/2024 7:31 AM EST Sexual Orientation Not on file Obstetrics History Last Filed Vital Signs Vital Sign Reading Time Taken Comments Blood Pressure 162/81 10/29/2024 8:48 AM EST Pulse 64 10/29/2024 8:48 AM EST Temperature 36 C (96.8 F) 10/29/2024 8:01 AM EST Respiratory Rate 22 10/29/2024 8:48 AM EST Oxygen Saturation 100% 10/29/2024 8:48 AM EST Inhaled Oxygen Concentration - - Weight 60.8 kg (134 lb) 10/29/2024 8:01 AM EST Height 152.4 cm (5') 10/29/2024 8:01 AM EST Body Mass Index 26.17 10/29/2024 8:01 AM EST Plan of Treatment Health Maintenance Due Date Last Done Comments Cervical Cancer Screening: Pap Smear 1993 Pneumococcal Vaccine: 50+ Years (2 of 2 - PPSV23) 2022 01/31/2019 HIV Screening 10/30/2022 Hepatitis C Screening 10/30/2022 Social Influencers of Health Screening 10/30/2022 Depression Screening 11/28/2024 Hepatitis B Vaccines (3 of 3 - Hep B Twinrix 3-dose series) 01/18/2025 08/18/2024, 06/08/2024 Influenza Vaccine (#1) 2025 4, 09/24/2023, 09/29/2020 Breast Cancer Screening 08/08/2026 08/08/20 24, 08/08/2023, 07/25/2022, Additional history exists DTaP,Tdap,and Td Vaccines (3 - Td or Tdap) 06/15/2034 06/15/2024, 04/23/2004 Colorectal Cancer Screening: Colonoscopy 10/29/2034 10/29/2024 Zoster Vaccines Completed 05/11/2022, 03/08/2022 COVID-19 Vaccine Completed 08/05/2024, , 03/25/2022, Additional history exists Hepatitis A Vaccines Aged Out 08/18/2024, 06/08/20 24 No longer eligible based on patient's age to complete this topic HIB Vaccines Aged Out No longer eligi ble based on patient's age to complete this topic HPV Vaccines Aged Out No longer eligi ble based on patient's age to complete this topic IPV Vaccines Aged Out No longer eligi ble based on patient's age to complete this topic MMR Vaccines Aged Out No longer eligi ble based on patient's age to complete this topic Meningococcal ACWY Vaccine Aged Out N o longer eligible based on patient's age to complete this topic Meningococcal B Vaccine Aged Out No l onger eligible based on patient's age to complete this topic RSV Immunization Patients Under 20 months Aged Out No longer eligible based on patient's age to complete this topic Varicella Vaccines Aged Out No longer eligible based on patient's age to complete this topic Procedures Procedure Name Priority Date/Time Associated Diagnosis Comments COLONOSCOPY Routine 10/29/2024 8:11 AM EST Family history of colonic polyps Family history of malignant neoplasm of digestive organs GOLDY SCREENING DIGITAL Routine 08/08/2024 11:11 AM EDT Encounter for screening mammogram for malignant neoplasm of breast from Last 3 Months or Most Recently Relevant to Health Maintenance Results * COLONOSCOPY Anesthesia - MAC; [facility] ENDOSCOPY (10/29/2024 8:11 AM EST) Anatomical Region Laterality Modality Endoscopy 10/29/2024 8:11 AM EST Impressions 10/29/2024 8:28 AM EST - The examined portion of the ileum was normal. - Internal hemorrhoids. - The examination was otherwise normal. - No specimens collected. Recommendation: - Repeat colonoscopy in 5 years for screening purposes. Narrative 10/29/2024 8:28 AM EST [facility] GI Patient Name: Neil Cannon Procedure Date: 10/29/2024 8:11 AM Date of : 1970 Age: 54 Gender: Female Note Status: Finalized Attending MD: Karla Garza MD, Procedure Date No Time: 10/29/2024 Procedure: Colonoscopy Indications: Screening in patient at increased risk: Family history of 1st-degree relative with colorectal cancer before age 60 years Providers: Karla Garza MD Referring MD: Yee novoa DO Medicines: Propofol per Anesthesia Complications: No immediate complications. Estimated Blood Loss: Estimated blood loss: none. Procedure: Pre-Anesthesia Assessment: - ASA Grade Assessment: II - A patient with mild systemic disease. After I obtained informed consent, the scope was passed under direct vision. Throughout the procedure, the patient's blood pressure, pulse, and oxygen saturations were monitored continuously.The Olympus Pediatric Colonoscope was introduced through the anus and advanced to the terminal ileum. The colonoscopy was performed without difficulty. The patient tolerated the procedure well. The quality of the bowel preparation was adequate to identify polyps. Findings: The perianal and digital rectal examinations were normal. The terminal ileum appeared normal. Internal hemorrhoids were found during retroflexion. The hemorrhoids were Grade I (internal hemorrhoids that do not prolapse). The exam was otherwise without abnormality. Procedure Code(s): --- Professional --- G0105, Colorectal cancer screening; colonoscopy on individual at high risk Diagnosis Code(s): --- Professional --- Z80.0, Family history of malignant neoplasm of digestive organs CPT copyright 2020 [employer]. All rights reserved. The codes documented in this report are preliminary and upon milk receiver tank truck review may be revised to meet current compliance requirements. Karla Garza MD 10/29/2024 8:28:12 AM This report has been signed electronically.Karla Garza MD Number of Addenda: 0 Note Initiated On: 10/29/2024 8:11 AM Scope In: Scope Out: Endoscopy Department at [facility] - [address] [place] [id number] Procedure Note Karla Garza MD - 10/29/2024 [facility] GI Patient Name: Neil Cannon Procedure Date: 10/29/2024 8:11 AM Date of : 1970 Age: 54 Gender: Female Note Status: Finalized Attending MD: Karla Garza MD, Procedure Date No Time: 10/29/2024 Procedure: Colonoscopy Indications: Screening in patient at increased risk: Familyhistory of 1st-degree relative with colorectal cancerbefore age 60 years Providers: Karla Garza MD Referring MD: Yee novoa DO Medicines: Propofol per Anesthesia Complications: No immediate complications. Estimated Blood Loss: Estimated blood loss: none. Procedure: Pre-Anesthesia Assessment: - ASA Grade Assessment: II - A patient with mild systemic disease. After I obtained informed consent, the scope was passed under direct vision. Throughout theprocedure, the patient's blood pressure, pulse, and oxygen saturations were monitored continuously.The Olympus Pediatric Colonoscope was introduced through theanus and advanced to the terminal ileum. The colonoscopy was performed without difficulty. The patient tolerated the procedure well. The quality of thebowel preparation was adequate to identify polyps. Findings: The perianal and digital rectal examinations were normal. The terminal ileum appeared normal. Internal hemorrhoids were found duringretroflexion. The hemorrhoids were Grade I (internal hemorrhoids that do not prolapse). The exam was otherwise without abnormality. Procedure Code(s): --- Professional --- G0105, Colorectal cancer screening; colonoscopy on individual at high risk Diagnosis Code(s): --- Professional --- Z80.0, Family history of malignant neoplasm of digestive organs CPT copyright 2020 [employer]. All rights reserved. The codes documented in this report are preliminary and upon milk receiver tank truck reviewmay be revised to meet current compliance requirements. Karla Garza MD 10/29/2024 8:28:12 AM This report has been signed electronically.Karla Garza MD Number of Addenda: 0 Note Initiated On: 10/29/2024 8:11 AM Scope In: Scope Out: Endoscopy Department at [facility] - [address] [place] [id number] IMPRESSION: - The examined portion of the ileum was normal. - Internal hemorrhoids. - The examination was otherwise normal. - No specimens collected. Recommendation: - Repeat colonoscopy in 5 years for screeningpurposes. us Karla Garza MD GI~PROCEDURE ORDERABLES Final Result * GOLDY SCREENING DIGITAL (08/08/2024 11:11 AM EDT) Anatomical Region Laterality Modality Mammography 08/08/2024 7:17 AM EDT Narrative 08/08/2024 11:11 AM EDT [facility] Diagnostic Imaging Department [address] [place] [id number] Patient: NEIL CANNON./Age/Sex: 1970 - 54 - F Unit#: [id number] Location/Status: SPDIMAM/REG CLI [facility]em[facility] Order[facility] Physician: KRAKOWIAK-COLASACCO,YEE DO [facility] Screening Digital - 08/08/24 - 0746 Report Status:Signed EXAM: [facility] Screening Digital EXAM DATE AND TIME: 08/08/2024 7:47 AM HISTORY: Screening. Left breast biopsy in 2019, pathology benign. COMPARISON: 08/06/23, 07/24/22, 07/18/21 TECHNIQUE: Bilateral digital breast tomosynthesis was performed in the CC and MLO projections. Computer aided detection with [employer] 3D 3.1 was employed. TISSUE DENSITY: c. The breasts are heterogeneously dense, which may obscure small masses. FINDINGS: The nodular parenchymal pattern is without significant change. No suspicious masses, grouped microcalcifications, or areas of architectural distortion are seen. A biopsy marker is again seen in the medial left breast. The skin and vascularity are unremarkable. IMPRESSION: Stable mammographic appearance of the breasts. No evidence of malignancy is seen. A negative mammogram in the presence of a clinically suspicious palpable abnormality does not preclude the possibility of malignancy or alter the indications for biopsy. BI-RADS: Category 2: Benign RECOMMENDATION(S): 1: Routine screening mammogram BILATERAL in 1 year. Mammogram performed at [facility] [place] [address] Dictating Physician: AVRIL JUSTICE MD Electronically Signed by: AVRIL JUSTICE MD Dic Date/Time: 08/08/24 1110 Sign date/Time: 08/08/24 1111 Procedure Note Avril Justice MD - 09/12/2024 [facility] Diagnostic Imaging Department [address] [place] [id number] Patient: NEIL CANNON /Age/Sex: 1970 - 54 - F Unit#: [id number] Location/Status: SPDIMAM/REG CLI Mnemonic/Ordering Site: [facility] Ordering Physician: YEE CASEY DO [facility] Screening Digital - 08/08/24 - 0746 Report Status:Signed EXAM: [facility] Screening Digital EXAM DATE AND TIME: 08/08/2024 7:47 AM HISTORY: Screening. Left breast biopsy in 2019, pathology benign. COMPARISON: 08/06/23, 07/24/22, 07/18/21 TECHNIQUE: Bilateral digital breast tomosynthesis was performed in the CCand MLO projections. Computer aided detection with [employer] 3D 3.1was employed. TISSUE DENSITY: c. The breasts are heterogeneously dense, which mayobscure small masses. FINDINGS: The nodular parenchymal pattern is without significant change. Nosuspicious masses, grouped microcalcifications, or areas of architectural distortionare seen. A biopsy marker is again seen in the medial left breast. The skinand vascularity are unremarkable. IMPRESSION: Stable mammographic appearance of the breasts. No evidence of malignancyis seen. A negative mammogram in the presence of a clinically suspicious palpable abnormality does not preclude the possibility of malignancy or alter the indications for biopsy. BI-RADS: Category 2: Benign RECOMMENDATION(S): 1: Routine screening mammogram BILATERAL in 1 year. Mammogram performed at [facility] [place] [address] Dictating Physician: AVRIL JUSTICE MD Electronically Signed by: AVRIL JUSTICE MD Dic Date/Time: 08/08/24 1110 Sign date/Time: 08/08/24 1111 Yee Casey DO IMG BI PROCEDURES Final Result from Last 3 Months or Most Recently Relevant to Health Maintenance Insurance MEDICAID - [place] Advance Directives Documents on File Type Date Recorded Patient Guest Services Director Expl anation Health Care Decision (hx) 10/19/2016 AD CHAPMAN DIRECTIVE Health Care Decision (hx) 10/19/2016 AD CHAPMAN DIRECTIVE Health Care Decision (hx) 10/19/2016 AD CHAPMAN DIRECTIVE Health Care Decision (hx) 10/19/2016 AD CHAPMAN DIRECTIVE Health Care Decision (hx) 10/19/2016 AD CHAPMAN DIRECTIVE Health Care Decision (hx) 10/19/2016 AD CHAPMAN DIRECTIVE Health Care Decision (hx) 10/19/2016 AD CHAPMAN DIRECTIVE Health Care Decision (hx) 10/19/2016 AD CHAPMAN DIRECTIVE Health Care Decision (hx) 10/19/2016 AD CHAPMAN DIRECTIVE Health Care Decision (hx) 10/19/2016 AD CHAPMAN DIRECTIVE Health Care Decision (hx) 10/19/2016 AD CHAPMAN DIRECTIVE Health Care Decision (hx) 10/19/2016 AD CHAPMAN DIRECTIVE Health Care Decision (hx) 10/19/2016 AD CHAPMAN DIRECTIVE Health Care Decision (hx) 10/19/2016 AD CHAPMAN DIRECTIVE Health Care Decision (hx) 10/19/2016 AD CHAPMAN DIRECTIVE Health Care Decision (hx) 10/19/2016 AD CHAPMAN DIRECTIVE Care Teams Recruiting Specialist Relationship Specialty Start Date End Date Yee Casey DO [facility] [address] [place] [id number] PCP - General 03/19/24
--- OUTSIDE RECORDS SUMMARY | 2025-07-18 09:39 | XMS_ITS | Clinical Summary ---
Author Organization [facility] Address [address] [place] [address] [address] [place] [address] Care Team Providers Care Composite Bond Technician Name Role Phone Unavailable Primary Care Provider Unavailabl e Allergies Active Allergy Reactions Criticality Noted Date Comments Pollen Extract 08/30/2024 Medications Albuterol Sulfate (ProAir RespiClick) 108 (90 Base) MCG/ACT aerosol powder Inhale. 02/16/2017 Active budesonide-form oterol (Symbicort) 160-4.5 MCG/ACT inhaler Inhale. Active hydroCHLOROthia zide (HYDRODiuril) 25 MG tablet Take 25 mg by mouth in the morning. 02/18/2023 Active lisinopril 5 MG tablet Take 1 tablet by mouth at bed time. Active gabapentin (Neurontin) 100 MG capsule TAKE 1 CAPSULE BY MOUTH EVERY DAY AT BEDTIME FOR 90 DAYS 01/09/2024 Active Social History Tobacco Use Types Packs/Day Years Used Date Smoking Tobacco: Never Passive Smoke Exposure: Never Smokeless Tobacco: Never Tobacco Cessation:Counseling Given: Not Answered Alcohol Use Standard Drinks/Week Comments Yes 1 (1 standard drink = 0.6 oz pur e alcohol) Comments Unknown Sex and Gender Information Value Date Recorded Sex Assigned at Female 09/27/2022 10:23 AM EDT Legal Sex Female 10:23 AM EDT Gender Identity Female 09/27/2022 10:23 AM EDT Sexual Orientation Straight 09/27/2022 10 :23 AM EDT Last Filed Vital Signs Vital Sign Reading Time Taken Comments Blood Pressure 120/72 08/30/2024 9:53 AM EDT Pulse 65 08/06/2024 9:58 AM EDT Temperature - - Respiratory Rate - - Oxygen Saturation - - Inhaled Oxygen Concentration - - Weight - - Height - - Body Mass Index - - Plan of Treatment Health Maintenance Due Date Last Done Comments CT Colonography 1972 Colonoscopy 1972 Colorectal Cancer Screening 1972 Dental X-Ray: Bitewings 1972 Dental X-Ray: Full Mouth 1972 Depression Screening 1972 FIT DNA/Cologuard 1972 FIT 1972 FOBT 1972 HIV Screening 1972 SDOH Screening 1972 Sigmoidoscopy 1972 Disability Screening 1972 Alcohol/Substance Use Screening 1984 Hepatitis C Screening 1990 Pap Smear 1993 Cervical Cancer Screening 2002 HPV/Cotest 2002 Mammogram 2012 Pneumococcal Vaccine: 50+ Years (2 of 2 - PPSV23) 2022 01/31/2019 Dental Oral Exam 08/05/2024 02/02/2024 Hepatitis B Vaccines (3 of 3 - Hep B Twinrix 3-dose series) 01/18/2025 08/18/2024, 06/08/2024 Dental Prophylaxis 02/04/2025 08/06/2024, 0 02/02/2024, 06/17/2023 Influenza Vaccine (#1) 2025 , 09/24/2023, 09/29/2020 Tobacco Screening 09/20/2025 09/20/2024 DTaP/Tdap/Td Vaccines (2 - Td or Tdap) 06/15/2034 06/15/2024, 04/23/2004 RSV Patients and Patients Aged 60 years or older (1 - 1-dose 75+ series) 2047 Zoster Vaccines Completed 05/11/2022, 03/08/2022 COVID-19 Vaccine [...] patient's age to complete this topic Meningococcal Vaccine Aged Out No carlyle herbert eligible based on patient's age to complete this topic RSV under 20 months Aged Out No longe r eligible based on patient's age to complete this topic Rotavirus Vaccines Aged Out No longer eligible based on patient's age to complete this topic Procedures Procedure Name Priority Date/Time Associated Diagnosis Comments PROPHYLAXIS - ADULT Routine 08/06/2024 1 0:00 AM EDT PERIODIC ORAL EVALUATION - ESTABLISHED PATIENT Routine 02/02/2024 10:00 AM EST from Last 3 Months or Most Recently Relevant to Health Maintenance Insurance [facility] MEDICAID STAND ADULT
== END 2025-07-18 08:58 | disposition home or self-care (01) ==
LOC: HO.HSM 08:40
PROVIDERS: PCP Internal Medicine; Visit Provider Registered Nurse
DX: R56.9 Unspecified convulsions (principal); D32.9 Benign neoplasm of meninges, unspecified; G44.209 Tension-type headache, unspecified, not intractable
CPT/HCPCS: 99214

== ENCOUNTER → 2025-07-18 08:39 | Outpatient (BNVA) | payer MEDICAID, SELFPAY | PROVIDERS: PCP Internal Medicine; Visit Provider Registered Nurse | DX: R56.9 Unspecified convulsions (principal); D32.9 Benign neoplasm of meninges, unspecified; G44.209 Tension-type headache, unspecified, not intractable | CPT/HCPCS: 99212 ==